=== PATIENT | female | born 1985 | race Caucasian/White ===

== ENCOUNTER → 2018-04-08 13:58 | Outpatient (CLI) | payer SELFPAY ==
--- NOTE | 2018-04-08 14:09 | DI.RAD.S_ITS ---
PROCEDURE: XR ELBOW LT MIN 3V INDICATIONS: FALL TECHNIQUE: 3 views of the elbow were acquired. COMPARISON: None. FINDINGS: Bones: No fractures or dislocations. No suspicious bony lesions. Soft tissues: Possible elbow joint effusion. No suspicious soft tissue calcifications. IMPRESSION: No fracture or dislocation. Possible small elbow effusion. If clinical symptoms persist or clinical suspicion for pathology is high, a repeat examination in 7-10 days, or advanced imaging such as CT or MRI is suggested for further evaluation. Dictated by: Chavez Wallace M.D. on 04/08/2018 at 14:21 Approved by: Chavez Wallace M.D. on 04/08/2018 at 14:25
== END ==
PROVIDERS: PCP Family Medicine; Visit Provider Physician Assistant
DX: M25.522 Pain in left elbow (principal)
CPT/HCPCS: 73080

== ENCOUNTER → 2022-01-26 13:37 | Outpatient (CLI) | payer OTHER, SELFPAY ==
--- NOTE | 2022-01-26 13:39 | DI.MG.S_ITS ---
BILATERAL DIGITAL DIAGNOSTIC MAMMOGRAM 3D/2D: 01/26/2022 CLINICAL: Baseline. Palpable right breast lump. No prior exams were available for comparison. The tissue of both breasts is extremely dense, which lowers the sensitivity of mammography. No significant masses, calcifications, or other findings are seen in either breast. IMPRESSION: INCOMPLETE: NEEDS ADDITIONAL IMAGING EVALUATION There is no abnormality seen in the right breast to correspond with the palpable abnormality, however, ultrasound is recommended. This exam was interpreted at Station ID: [id number]. NOTE: For mammograms, a report in lay terms will be sent to the patient. Approximately 15% of breast malignancies will not be visualized mammographically. In the management of a palpable breast mass, a negative mammogram must not discourage biopsy of a clinically suspicious lesion. Electronically Signed By: Peter dumont/megan:01/26/2022 14:28:11 ACR BI-RADS Category 0: Incomplete [id number]
--- NOTE | 2022-01-26 13:39 | DI.US.S_ITS ---
LIMITED ULTRASOUND OF RIGHT BREAST: 01/26/2022 CLINICAL: Palpable right breast lump. Comparison is made to exam dated: 01/26/2022 mammogram - [facility]. Real-time ultrasound of the right breast 4 o'clock region was performed. Alarcon scale images of the real-time examination were reviewed. No significant abnormalities were seen sonographically in the right breast. IMPRESSION: NEGATIVE There is no sonographic evidence of malignancy. There is no abnormality seen in the right breast to correspond with the palpable abnormality, however, clinical followup is recommended. A 5 year screening mammogram is recommended. This exam was interpreted at Station ID: [id number]. Electronically Signed By: Peter dumont/megan:01/26/2022 14:37:31 letter sent: Clinical Evaluation Ultrasound BI-RADS: 1 Negative
== END ==
PROVIDERS: PCP Family Medicine; Referring Provider Obstetrics & Gynecology; Visit Provider Obstetrics & Gynecology
DX: N63.10 Unspecified lump in the right breast, unspecified quadrant (principal); R92.2 Inconclusive mammogram
CPT/HCPCS: 76642; 77066; G0279